=== PATIENT | female | born 1970 | race Caucasian/White ===

== ENCOUNTER 2017-10-30 21:42 | Emergency (ER) | END 2017-10-30 22:59 | disposition home or self-care (01) ==

== ENCOUNTER 2018-08-25 11:12 | Emergency (ER) | payer OTHER ==
[~2018-08-25] VITALS: Ht 167.6 cm; Wt 71.4 kg
[~2018-08-25 11:12] MED LIST: ACET500C5 PO; HYDR-4011 PO; HYDR30CR75 PR; IBUP-1542 PO; LORA1TAB54 PO; MECL25TA2 PO; PROM6.25 PO
[2018-08-25 11:15] VITALS: Ht 167.6 cm; Wt 71.4 kg
--- NOTE | 2018-08-25 14:33 | ERD ---
ER Documentation Chief Complaint Chief Complaint Complains of chest pain x 2 days ago HPI This is a 48-year-old female with a past medical history of hypertension, hyperlipidemia, reportedly being controlled by diet and exercise who is presenting with 2 days of left-sided waxing and waning moderate pressure-like chest pain transiently radiating into the left arm with occasional episodes of shortness of breath and a sensation of generalized weakness, most prominent in her arms bilaterally. The patient reports that her symptoms started 2 days ago but resolved on its own that first day. Her mild shortness of breath and weakness has persisted, which is ultimately what prompted her to come to the emergency department. She also endorses having a productive cough of green sputum beginning yesterday. She denies any fever or chills. She denies lightheadedness or dizziness. She denies diaphoresis. Her symptoms were nonexertional. She denies any trauma or injury or heavy lifting. She does not have a history of heart attack. The patient has had no headache or vision changes. The patient does not endorse neck or back pain. The patient denies abdominal pain. The patient denies changes to bowel movements or urination. The patient has had no focal deficits. The patient has had no weakness or numbness or tingling to the face or extremities. ROS All systems reviewed and are negative except as per history of present illness. Medications Home Meds Discontinued Scripts Hydrocortisone Acetate* (Anusol-HC*) 30 Gm Cream.gm., 1 APPLIC VA TID, #1 TUB Prov:TARAS MARINO PA-C 10/30/17 Hydrocodone/Acetaminophen (Kabetogama 5-325 Tablet) 1 Each Tablet, 1 TAB PO Q6H PRN for PAIN, #7 TAB Prov:TARAS MARINO PA-C 10/30/17 Ibuprofen* (Motrin*) 600 Mg Tab, 600 MG PO Q6, #30 TAB Prov:TARAS MARINO PA-C 18 Promethazine w/Codeine* (Phenergan w/Codeine* Syrup) 5 Ml Syrup, 10 ML PO QHS PRN for COUGH, #100 ML Prov:JESUS ALBERTO OLIVAREZ PA-C 08/08/15 Loratadine/Pseudoephedrine* (Claritin-D* 12 Hr) 5-120 Mg Tab.er.12h, 1 TAB PO Q12, #14 TAB.SA Prov:ROHINI OLIVAREZEMANI CASTRO-C 08/08/15 Ibuprofen* (Motrin*) 600 Mg Tab, 600 MG PO Q6H PRN for PAIN AND OR ELEVATED TEMP, #30 TAB Prov:ROHINI OLIVAREZEMANI Serrano PA-C 08/08/15 Acetaminophen* (Tylophen*) 500 Mg Capsule, 1 CAP PO Q4 PRN for PAIN AND OR ELEVATED TEMP, #20 CAP Prov:JUANISJESUS ALBERTO Serrano PA-C 08/08/15 Meclizine Hcl* (Antivert*) 25 Mg Tablet, 25 MG PO Q6H for DIZZINESS, #14 TAB Prov:SILVANO DOBBS MD 05/30/15 Allergies Allergies: Coded Allergies: No Known Allergy (Verified , 08/25/18) PMhx/Soc History of Surgery: Yes (fibroid removal 2013) Anesthesia Reaction: No Hx Neurological Disorder: No Hx Respiratory Disorders: No Hx Cardiac Disorders: Yes (Hypertension, hyperlipidemia) Hx Psychiatric Problems: No Hx Miscellaneous Medical Probl: No Hx Alcohol Use: Yes (Occasionally) Hx Substance Use: No Hx Tobacco Use: Yes (Socially) Smoking Status: Current some day smoker FmHx Family History: No diabetes Physical Exam Vitals Vital Signs Date Temp Pulse Resp B/P (MAP) Pulse Ox O2 O2 Flow FiO2 Time Delivery Rate 08/25/18 82 20 115/86 98 Room Air 16:35 (96) 08/25/18 Nasal 2 14:53 Cannula 08/25/18 98.5 88 20 171/99 98 11:15 (123) Physical Exam Const: No apparent distress, well-developed, well-nourished Head: Normocephalic, Atraumatic Eyes: Normal Conjunctiva. Extraocular movements intact. Pupils equal, round and reactive to light ENT: Normal External Ears, Nose and Mouth. Neck: Full range of motion. No meningismus. Resp: Clear to auscultation bilaterally, No wheezes, rales or rhonchi Cardio: Regular rate and rhythm. No murmurs, rubs or gallops Abd: Soft, non tender, non distended. Normal bowel sounds Skin: No petechiae or rashes Back: No midline tenderness. No CVA tenderness Ext: No cyanosis, or edema Neur: Awake and alert, oriented 4. Cranial nerves intact. No facial droop. Normal strength, sensation and coordination. Psych: Normal Mood and Affect Result Diagram: 08/25/18 1425 08/25/18 1425 Results 24 hrs Laboratory Tests Test 08/25/18 14:25 08/25/18 16:45 White Blood Count 5.0 10^3/ul Red Blood Count 4.91 10^6/ul Hemoglobin 14.7 g/dl Hematocrit 44.1 % Mean Corpuscular Volume 89.8 fl Mean Corpuscular Hemoglobin 29.9 pg Mean Corpuscular Hemoglobin Concent 33.3 g/dl Red Cell Distribution Width 11.9 % Platelet Count 233 10^3/UL Mean Platelet Volume 11.6 fl Immature Granulocytes % 0.200 % Neutrophils % 48.7 % Lymphocytes % 41.2 % Monocytes % 8.3 % Eosinophils % 1.2 % Basophils % 0.4 % Nucleated Red Blood Cells % 0.0 /100WBC Immature Granulocytes # 0.010 10^3/ul Neutrophils # 2.5 10^3/ul Lymphocytes # 2.1 10^3/ul Monocytes # 0.4 10^3/ul Eosinophils # 0.1 10^3/ul Basophils # 0.0 10^3/ul Nucleated Red Blood Cells # 0.0 10^3/ul Sodium Level 142 mmol/L Potassium Level 4.2 mmol/L Chloride Level 105 mmol/L Carbon Dioxide Level 26 mmol/L Anion Gap 11 Blood Urea Nitrogen 12 mg/dl Creatinine 0.54 mg/dl Est Glomerular Filtrat Rate mL/min > 60 mL/min Glucose Level 107 mg/dl Calcium Level 9.3 mg/dl Troponin I < 0.012 ng/ml < 0.012 ng/ml Procedures/[facility] MDM The patient's presentation warrants further investigation. Previous medical records, if available, were reviewed. LABS The patient's laboratory testing was obtained and reviewed. No emergent treatment was required unless described below. CBC: No E/o systemic infection or severe anemia or thrombocytopenia Chemistry: No E/o severe acidosis or alkalosis or renal failure or diabetic ketoacidosis Troponin: No E/o acute ischemia x2 EKG EKG read by me: Rate/Rhythm: Regular rate and rhythm at a rate of 83 bpm with a sinus arrhythmia Intervals: Normal [place]: Normal Impression: No evidence of acute ischemia. Sinus arrhythmia IMAGING Imaging and Radiology interpretation reviewed. CXR FINDINGS: The trachea is midline. The cardiac silhouette and pulmonary vascularity are within normal limits. The lungs are clear. The costophrenic angles are sharp. IMPRESSION: No evidence of acute cardiopulmonary disease. Electronically viewed and signed by Physician Dorothea on 08/25/2018 14:40 TREATMENT/DISPOSITION The patient reports waxing and waning chest pain and an associated cough with mild shortness of breath and generalized fatigue. The patient's symptoms could be related to a viral syndrome. However, given her chest pain, a cardiac workup was completed. The patient's chest xray does not reveal pneumonia or pneumothorax or pleural effusions or pulmonary edema. The patient does not have a widened mediastinum and does not have signs or symptoms concerning for thoracic aortic aneurysm or dissection. The patient does not have pneumomed iastinum or signs concerning for esophageal tear or rupture. The patient has no clinical or radiographic signs of pericardial effusion or tamponade. The patient does not have pneumoperitoneum and I have decreased suspicion of viscus perforation as possible referred pain. The patient does not have a history of heart failure and I have low suspicion for this. The patient does not have a diagnosis of COPD and is not wheezing today. The patient is not tachypneic or hypoxic. The patient is breathing comfortably and without pleuritic pain. The patient is not on hormonal therapy. The patient has no history of clotting or bleeding disorders. The patient has no calf tenderness. The patient has had no hemoptysis. I have decreased suspicion for PE. The patient's EKG is normal and the patient's troponin was negative twice over the course of 3 hours. I have low suspicion for acute coronary syndrome. DISCHARGE The patient's HEART score is equal to or less than 3. This stratifies the patient into the low risk (<1%) group for an major adverse cardiac event within the next 30 days. Shared decision making was enacted. The risks and benefits of admission and discharge were discussed with the patient and it was ultimately decided that the patient would be discharged with close outpatient follow up and evaluation for functional testing within 72 hours. Upon reevaluation of the patient, symptoms have improved. No emergent diagnoses were identified. At this time, I feel that the patient stable for discharge. The patient was instructed to follow-up with a primary care physician in 1-3 days. The patient will be given strict precautions with which to return to the emergency department. Prescriptions: None The patient's blood pressure was elevated at greater than 120/80 while in the em ergency department. The patient was otherwise stable with no evidence of hypertensive urgency or emergency. The patient does not require admission for blood pressure control. I have discussed with the patient the risks of hypertension. I have instructed the patient to return to the ER for any new or worsening symptoms including chest pain, shortness of breath, headache, blurred vision, confusion, nausea, vomiting or LOC. I have advised the patient to follow up with the primary care physician for outpatient monitoring and treatment for hypertension in 1-3 days. Disclaimer: Inadvertent spelling and grammatical errors are likely due to EHR/dictation software use and do not reflect on the overall quality of patient care. Note that the electronic time recorded on this note does not necessarily reflect the actual time of the patient encounter. Departure Diagnosis: Primary Impression: Nonspecific chest pain Additional Impressions: Shortness of breath Fatigue Fatigue type: unspecified Qualified Codes: R53.83 - Other fatigue Cough Condition: Stable Patient Instructions: Chest Pain, Uncertain Cause, Generalized Weakness, Cough, Chronic, Uncertain Cause, (Adult) Additional Instructions: Thank you for for coming to [facility] for your care today. Please ask your nurse or provider if you have questions about your care today and do not leave until all your questions have been answered. Please use any medications given as directed and follow-up with your doctor (or the doctor you were referred to) in the next 1-3 days. If you do not have a primary care doctor you may follow up at the [facility] or [facility] (listed below). You may also use motrin and tylenol as needed for fever and/or pain unless instructed otherwise by your provider or nurse. Indications for more urgent follow-up have been discussed, but you may return to the Emergency Department at ANY time for any worrisome or worsening symptoms. If you have abdominal pain, please know that no test or exam you received is perfect and you should follow up within 8 hours for continued pain. If you had any imaging studies today, such as an X-Ray or CT Scan, these studies will be reviewed later by a radiologist. You will be called if there are important findings that were not identified today, so make sure the contact information you provided at registration is correct. If you received any narcotic pain control medicine today, such as Vicodin, Morphine or Dilaudid, your coordination and judgment may be affected for a number of hours. Please do not drive or operate heavy machinery, and you may want someone to assist you at home. If you were given a prescription for narcotic medication, be aware that it is very addictive- use sparingly and only if necessary. PLEASE SEEK FURTHER EVALUATION AND MANAGEMENT AT YOUR DOCTORS OFFICE WITHIN THE NEXT 1-3 DAYS. IT IS YOUR RESPONSIBILITY TO MAKE AN APPOINTMENT FOR FOLOW-UP CARE. IF YOU HAVE A PRIMARY DOCTOR, PLEASE CALL THEIR OFFICE TO SCHEDULE AN APPOINTMENT FOR FOLLOW UP. IF YOU DO NOT HAVE A PRIMARY DOCTOR YOU CAN CALL OUR PHYSICIAN REFERRAL HOTLINE AT IF YOU CAN NOT AFFORD TO SEE A PHYSICIAN YOU CAN CHOSE FROM THE FOLLOWING COMM[facility]ITY [facility] CLINICS: [facility] [address] [facility]. [facility] [address] [facility]. [facility] [address] [facility] [address] [facility] [address] [facility]. [facility]. [address] JUANA RAHMAN MD Aug 25, 2018 14:33
[2018-08-25 16:35] VITALS: BP 115/86; PULSE 82; RESP 20
[2018-08-25] MEDS ORDERED: IBUP-1542 PO (17:49)
== END 2018-08-25 17:58 | disposition home or self-care (01) ==
LOC: E/R 11:12
DX: R07.9 Chest pain, unspecified (principal); R06.02 Shortness of breath; R53.83 Other fatigue; R05 Cough; I10 Essential (primary) hypertension; F17.210 Nicotine dependence, cigarettes, uncomplicated
CPT/HCPCS: 36415; 71045; 80048; 84484; 85025; 93005; Z7502

== ENCOUNTER 2018-12-09 12:19 | Emergency (ER) | payer OTHER ==
[~2018-12-09] VITALS: Ht 154.9 cm; Wt 70.0 kg
[~2018-12-09 12:19] MED LIST changes: -ACET500C5 PO; -HYDR-4011 PO; -HYDR30CR75 PR; -LORA1TAB54 PO; -MECL25TA2 PO; -PROM6.25 PO
[2018-12-09 12:24] VITALS: BP 159/95; PULSE 79; RESP 18; Ht 154.9 cm; Wt 70.0 kg
[2018-12-09] MEDS ORDERED: LIDOCAINE/MYLANTA 40 ML BTL PO ONE (14:00)
[2018-12-09] MEDS ORDERED: FAMOTIDINE 20 MG TAB PO ONE (14:00)
[2018-12-09] MEDS ORDERED: MAG355OR15 PO (14:31)
[2018-12-09] MEDS ORDERED: FAMO-96 PO (14:31)
[2018-12-09] MEDS ORDERED: OMEP40CA6 PO (14:32)
--- NOTE | 2018-12-09 14:35 | ERD ---
ER Documentation Chief Complaint Chief Complaint difficulty swallowing solid foods x 1 week HPI This is a 48-year-old female patient who presents to emergency room with complaint of feeling like she has something stuck in her throat at level of larynx. Denies incident of choking or difficulty swallowing, no vomiting, no drooling, no stridor, no increased work of breathing, no tripoding, nad. No chest pain, no SOB, no cough. Pain only occurs with oral consumption. Patient states she has been burping acid, she eats a lot of spicy foods, denies alcohol use. States she has been under a lot of stress in the last week as her son is traveling in a dangerous part of [place]. 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 States pain is similar to prior episode. ROS All systems reviewed and are negative except as per history of present illness. Medications Home Meds Active Scripts Omeprazole* (Omeprazole*) 40 Mg Capsule.dr, 40 MG PO DAILY for DYSPEPSIA for 30 Days, #30 CAP Prov:JOSE DAVID TOWNSEND NP 12/09/18 Mag Hydrox/Al Hydrox/Simeth (Maalox Plus X-Strength Susp) 355 Ml Oral.susp, 10 ML PO Q6 for REFLUX for 5 Days, #100 ML Prov:JOSE DAVID TOWNSEND NP 12/09/18 Ibuprofen* (Motrin*) 600 Mg Tab, 600 MG PO Q6H PRN for PAIN AND OR ELEVATED TEMP, #30 TAB Prov:JUANA HART MD 08/25/18 Discontinued Scripts Famotidine* (Pepcid*) 20 Mg Tablet, 20 MG PO BID for DYSPEPSIA for 30 Days, #60 TAB Prov:JOSE DAVID TOWNSEND NP 12/09/18 Allergies Allergies: Coded Allergies: No Known Allergy (Verified , 08/25/18) PMhx/Soc History of Surgery: Yes (fibroid removal 2013) Anesthesia Reaction: No Hx Neurological Disorder: No Hx Respiratory Disorders: No Hx Cardiac Disorders: Yes (Hypertension, hyperlipidemia) Hx Psychiatric Problems: No Hx Miscellaneous Medical Probl: No Hx Alcohol Use: Yes (Occasionally) Hx Substance Use: No Hx Tobacco Use: Yes (Socially) Smoking Status: Current every day smoker FmHx Family History: No diabetes, No coronary disease, No other Physical Exam Vitals Vital Signs Date Temp Pulse Resp B/P (MAP) Pulse Ox O2 O2 Flow FiO2 Time Delivery Rate 12/09/18 98.4 79 18 159/95 99 12:24 (116) Physical Exam Const: No acute distress Head: Atraumatic Eyes: Normal Conjunctiva, PERRL ENT: TM clear BL, back of pharynx with erythema, no lesions, no petechiae Neck: Full range of motion. No meningismus. No lymphadenopathy, no thyromegaly. No palpable nodules. Patient able to swallow without pain or limitations. No stridor. Resp: Clear to auscultation bilaterally, no wheezing, no rales, no rhonchi. Cl ear speech. Cardio: Regular rate and rhythm, no murmurs Abd: Soft, non tender, non distended. Normal bowel sounds. Skin: No petechiae or rashes Neur: Awake and alert Psych: Normal Mood and Affect Results 24 hrs Current Medications Medications Dose Sig/Anders Start Time Status Last (Trade) Ordered Route PRN Stop Time Admin Dose Reason Admin Famotidine 20 mg ONCE ONCE 12/09/18 DC 12/09/18 (Pepcid) PO 14:00 14:02 12/09/18 14:01 40 ml ONCE ONCE 12/09/18 DC 12/09/18 Miscellaneous PO 14:00 14:02 Medication 12/09/18 14:01 (Gi Cocktail (2)) Procedures/MDM PROCEDURES/MDM EKG: Not indicated. Pt denies cp. Pain does not radiate or originate lower than level of larynx. Focuses discomfort to larynx. Pain related to food consumption only. DIAGNOSTIC IMAGING: Not indicated, pt able to swallow liquids without vomiting, drooling, or stridor. -Medications: Pepcid, GI cocktail. Patient tolerated medication well with no adverse reactions. Patient reported improvement in pain. MDM: This is a 48-year-old female patient who presents emergency room with complaint of feeling like she has something stuck in her throat. Patient denies initial incident involving choking, swallowing, or inability to swallow solid food or liquids. Patient states she has had a nodule removed from her vocal cord and this feels similar to that prior incident. Clinical exam reveals an irritated erythema to back of her throat, patient also describes a sensation of burping acid. After administration of Pepcid and Maalox, patient states she feels improved. Patient was able to swallow these oral medications without difficulty and without vomiting. Patient states she has also been under a lot of stress and feels this may be contributory. It is most likely patient is currently experiencing dyspepsia, however she may have a recurrence of the nodule on her vocal cord. We discussed diagnostic exams and appropriateness from the ED, it is advisable for patient to have diagnosis of larynx disorder from her ENT specialist. CT scan of the neck is not indicated as as patient has no limited range of motion, she is able to swallow without difficulty- only discomfort, no stridor, no drooling, no indication for aspirated foreign body, no hematemesis or hemoptysis. I have very low suspicion for this being a referred cardiac pain as patient denies chest pain, states pain does not radiate from area of chest, and pain is isolated to larynx at times of swallowing food. Patient has been instructed on diet appropriate for dyspepsia, stress management, and red flags of worsening of condition and when to seek emergent medical treatment. Patient verbalizes understanding and states she has scheduled appointment to follow-up with both her ENT and PMD. DISPOSITION and PLAN: RX: Maalox, omeprazole The patient has been discharge home to follow-up with community physician. Departure Diagnosis: Primary Impression: Dyspepsia Condition: Stable Patient Instructions: Anxiety Reaction, Gerd (Adult), Aluminum Hydroxide, Magnesium Carbonate Oral suspension Referrals: [facility] YOU HAVE RECEIVED A MEDICAL SCREENING EXAM AND THE RESULTS INDICATE THAT YOU DO NOT HAVE A CONDITION THAT REQUIRES URGENT TREATMENT IN THE EMERGENCY DEPARTMENT. FURTHER EVALUATION AND TREATMENT OF YOUR CONDITION CAN WAIT UNTIL YOU ARE SEEN IN YOUR DOCTORS OFFICE WITHIN THE NEXT 1-2 DAYS. IT IS YOUR RESPONSIBILITY TO MAKE AN APPOINTMENT FOR FOLOW-UP CARE. IF YOU HAVE A PRIMARY DOCTOR --you should call your primary doctor and schedule an appointment IF YOU DO NOT HAVE A PRIMARY DOCTOR YOU CAN CALL OUR PHYSICIAN REFERRAL HOTLINE AT IF YOU CAN NOT AFFORD TO SEE A PHYSICIAN YOU CAN CHOSE FROM THE FOLLOWING [facility] [address] [facility] [address] [facility]. [facility] [address] [facility] [address] [facility] [address] [facility]. [facility] [address] Additional Instructions: Thank you very much for allowing us to participate in your care. Your health and safety is our top priority at [facility]. Call your primary care doctor TOMORROW for an appointment during the next 2-4 days and bring all the information and medications prescribed. Have prescriptions filled and follow precisely the directions on the label. If the symptoms get worse and your provider is unavailable, return to the Emergency Department immediately. FOLLOW-UP WITH YOUR ENT SCHEDULED IN DECEMBER REDUCE INTAKE OF SPICY FOODS, FRIED FOODS, ALCOHOL, CAFFEINE REDUCE STRESS BY INCREASING EXERCISE INCREASE HYDRATION TO 1 TO 2 L/DAY RETURN TO THE EMERGENCY ROOM IMMEDIATELY WITH VOMITING, FEVER, SHORTNESS OF BREATH JOSE DAVID TOWNSEND NP Dec 09, 2018 14:35
== END 2018-12-09 14:42 | disposition home or self-care (01) ==
LOC: FTE 12:19
DX: R10.13 Epigastric pain (principal); I10 Essential (primary) hypertension; F17.210 Nicotine dependence, cigarettes, uncomplicated
CPT/HCPCS: Z7502; Z7610; 99283